=== PATIENT | female | born 1975 | race Caucasian/White ===

== ENCOUNTER 2016-08-24 11:57 | Emergency (ER) | payer BC ==
--- NOTE | 2016-08-24 13:31 | ER NURSING DOCUMENTATION ---
Nurse's Notes [facility] Name:Rebeka Koroma Age:41 yrs Sex:Female :1975 Arrival Date:08/24/2016 Time:11:57 Bed3 Private MD: Diagnosis:Back Pain w/ Sciatica Presentation: 08/24 12:00 Acuity: LÁZARO 2 st 12:05 Presenting complaint: Patient states: pt's back was bugging her yesterday then when she st leaned over this AM her lower back really started to hurt. pt complains of left gluteal and lower back pain that shoots down her left leg. Transition of care: patient was not received from another setting of care. 12:05 Method Of Arrival: Private Vehicle st 12:08 Care prior to arrival: Medication(s) given: Ibuprofen 800 Mg taken at 10:30. st Triage Assessment: 12:07 General: Appears uncomfortable, Behavior is cooperative, crying. Pain: Complains of st pain in coccyx and left gluteus vanessa Pain currently is 10 out of 10 on a pain scale. 12:08 Pain: Pain radiates to left leg. Cardiovascular: No deficits noted. Respiratory: No st deficits noted. GI: No deficits noted. Musculoskeletal: Range of motion intact in all extremities. Swelling absent Tenderness present in left gluteus vanessa and coccyx Reports numbness in left leg. Historical: - Allergies: No known drug Allergies; - Home Meds: 1. Wellbutrin Oral - PMHx: DEPRESSION; - PSHx: breast inplants; - Tetanus: < 10 years. - Ebola Screening: : Patient denies exposure to infectious person. Patient denies travel to an Ebola-affected area in the 21 days before illness onset. . - Social history: Smoking status: Patient uses tobacco products, current every day smoker. Patient uses alcohol occasionally. Screenin:11 Infectious Disease Risk None. Abuse screen: Denies threats or abuse. Denies injuries st from another. pt feels safe at home. Nutritional screening: No deficits noted. Assessment: 12:11 Neuro: Level of Consciousness is awake, alert, Oriented to person, place, time, event, st Outboard [employer] are equal bilaterally pt has good pushes and pulls in the left limb. 12:42 General: pt updated on reasons for delay. st Vital Signs: 12:09 BP 160 / 69; Pulse 70; Resp 18; Pulse Ox 93% on R/A; Pain 10/10; st ED Course: 11:58 Patient arrived in ED. ama 12:00 Tracie Espinoza RN is Primary Nurse. st 12:[address] 12:12 Valuables Remains with patient. st 12:46 Alen Thompson MD is Attending Physician. cd 13:05 Ice pack to injury. st Administered Medications: 12:59 CANCELLED (Physician Discretion): Toradol [address] Outcome: 13:09 Discharge ordered by . cd 13:30 Discharged to home via wheelchair. st 13:30 Condition: stable 13:30 Discharge instructions given to patient, Instructed on discharge instructions, follow up and referral plans. medication usage, Prescriptions given X 1. 13:31 Patient [address] the ED. st 06 14:03 Discharge F/U Call: Unable to reach: no answer st Signatures: Tracie Espinoza RN RN st Alen Thompson MD MD cd Averdick, Andrew, Reg Reg ama
--- NOTE | 2016-08-24 13:31 | ER PHYSICIAN DOCUMENTATION ---
Physician Documentation [facility] Name:Rebeka Koroma Age:41 yrs Sex:Female :1975 Arrival Date:08/24/2016 Time:11:57 Bed3 Private MD: Alen Vasquez Disposition: 08/24 13:05 Chart complete. cd Disposition: 08/24/16 13:09 Discharged to Home/Self Care. Impression: Back Pain w/ Sciatica. - Condition is Fair. - Discharge Instructions: BACK PAIN w/ SCIATICA. - Prescriptions for Percocet 5- 325 mg Oral Tablet - take 1 tablet by ORAL route every 6 hours As needed; 20 tablet. - Medical Reconciliation form form. - Follow up: Private Physician; When: 4- 6 days; Reason: Recheck today's complaints, Continuance of care. - Problem is new. - Symptoms are unchanged. - Notes: Ice packs for 2 - 3 days. Ibuprofen 600mg by mouth every 6 hours with food for 4 - 5 days. Rest. Follow up with your doctor back home to get a referral to Physical Therapy. Take Percocet (5mg) one by mouth every 6 hours with food for severe pain. HPI: 12:00 This 41 yrs old Female presents to ER via Private Vehicle with complaints of cd Back Pain. 12:00 The patient presents with pain that is acute, and decreased range of motion. The cd symptoms are located in the low back, left low back and left SI Joint. Onset: The symptoms/episode began/occurred acutely, yesterday, and became worse today, after bending over. The pain radiates down the patient's left lower extremity, over posterior and lateral thigh. Associated signs and symptoms: The patient has no apparent associated signs or symptoms. Severity of symptoms: At their worst the symptoms were moderate, in the emergency department the symptoms are unchanged. Historical: - Allergies: No known drug Allergies; - Home Meds: 1. Wellbutrin Oral - PMHx: DEPRESSION; - PSHx: breast inplants; - Tetanus: < 10 years. - Ebola Screening: : Patient denies exposure to infectious person. Patient denies travel to an Ebola-affected area in the 21 days before illness onset. . - Social history: Smoking status: Patient uses tobacco products, current every day smoker. Patient uses alcohol occasionally. ROS: 12:10 Neck: Negative for injury, pain, stiffness and swelling. cd Cardiovascular: Negative for chest pain, palpitations, edema and pleuritic pain. Respiratory: Negative for shortness of breath, dyspnea on exertion, cough, sputum production, wheezing, hemoptysis and pleuritic chest pain. Abdomen/GI: Negative for abdominal pain, nausea, vomiting, diarrhea, constipation, distension, melena, hematochezia and hematemesis. : Negative for injury, bleeding, discharge, dysuria, frequency, urgency and swelling. MS/Extremity: Negative for injury, deformity, edema, calf tenderness, pain or coldness. 12:10 Skin: Negative for injury, rash, itching and discoloration. cd 12:10 Constitutional: Negative for chills, fever, poor PO intake. 12:10 Back: Positive for decreased range of motion, pain at rest, pain with movement, radiated pain, of the left gluteus vanessa. 12:10 Neuro: Negative for gait disturbance, numbness. 12:10 All other systems are negative. Exam: Neck: Trachea midline, no thyromegaly or masses palpated, and no cervical lymphadenopathy. Supple, full range of motion without nuchal rigidity, or vertebral point tenderness. No Meningismus. Cardiovascular: Regular rate and rhythm with a normal S1 and S2. No gallops, murmurs, or rubs. Normal PMI, no JVD. No pulse deficits. Respiratory: Lungs have equal breath sounds bilaterally, clear to auscultation and percussion. No rales, rhonchi or wheezes noted. No increased work of breathing, no retractions or nasal flaring. Abdomen/GI: Soft, non-tender, with normal bowel sounds. No distension or tympany. No guarding or rebound. No evidence of tenderness throughout. 12:30 Neuro: Awake and alert, GCS 15, oriented to person, place, time, and situation. cd Cranial nerves II-XII grossly intact. Motor strength 5/5 in all extremities. Sensory grossly intact. Cerebellar exam normal. Normal gait. 12:30 Constitutional: The patient appears alert, awake, anxious, in obvious distress, moderately distressed. 12:30 Back: pain, that is moderate, ROM is painful, normal spinal alignment noted, CVA tenderness, is absent, vertebral tenderness, is not appreciated, Straight leg raises: of both lower extremities does not illicit pain. 12:30 Abdomen/GI: Exam negative for acute changes, Palpation: abdomen is soft and non-tender, cd Rectal exam: the exam is deferred. 12:30 Back: muscle spasm, is not present. 12:30 : Rectal exam: is not applicable. 13:05 Neuro: Motor: moves all fours, Sensation: is normal, no obvious gross deficits, Gait: cd is steady, Deep tendon reflexes are normal. Vital Signs: 12:09 BP 160 / 69; Pulse 70; Resp 18; Pulse Ox 93% on R/A; Pain 10/10; st MDM: 12:30 Differential diagnosis: ruptured disc, sprain, Acute SI Joint Strain with Sciatica. cd 12:46 Patient medically screened. cd 13:05 Data reviewed: vital signs, nurses notes, old medical records, and as a result, I will cd discharge patient. Data interpreted: Pulse oximetry: on room air is 93 %. Interpretation: normal. Counseling: I had a detailed discussion with the patient and/or guardian regarding: the historical points, exam findings, and any diagnostic results supporting the discharge/admit diagnosis, the need for outpatient follow up, for a recheck, with the patient's primary care provider, to return to the emergency department if symptoms worsen or persist or if there are any questions or concerns that arise at home. 08/24 12:57 Order name: Ice Packs; Complete Time: 13:05 cd Dispensed Medications: 12:59 CANCELLED (Physician Discretion): Toradol [address] Signatures: Tracie Espinoza RN RN st Daley, Chris, MD MD cd
== END 2016-08-24 13:31 | disposition home or self-care (01) ==
LOC: ER 11:57
DX: M54.42 Lumbago with sciatica, left side (principal); Z79.899 Other long term (current) drug therapy
CPT/HCPCS: 99281